=== PATIENT | male | born 1985 | race Caucasian/White ===

== ENCOUNTER 2022-06-06 08:48 | Emergency (ER) | payer OTHER, SELFPAY ==
[2022-06-06 09:38] VITALS: BP 134/86; PULSE 71; RESP 20; TEMP 36.4; O2SAT 100
--- NOTE | 2022-06-06 10:06 | ED.SOB ---
HPI - SOB/Dyspnea General Chief Complaint: Shortness of Breath/Dyspnea Stated Complaint: shortness of breath,chest hurts,headaches Time Seen by Provider: 06/06/22 10:07 Source: patient and RN notes reviewed Mode of arrival: ambulatory Limitations: no limitations History of Present Illness HPI Narrative: 37-year-old male presents with concern for 4 day history of cough, chest hurting with coughing, headaches, feeling of shortness of breath. He reports he has been taking several [id number] medications without relief. MD elicited complaint: cough Related Data Allergies Allergy/AdvReac Type Severity Reaction Status Date / Time No Known Allergies Allergy Unverified 06/06/22 09:50 Review of Systems Review of Systems: CONSTITUTIONAL: Reports malaise, chills. Denies sweats or fever. EYES: Denies visual changes, redness, or discharge. ENT: Reports rhinorrhea, congestion. Denies sinus pain, otalgia and sore throat. CARDIOVASCULAR: Denies chest pain, palpitations, or edema. RESPIRATORY: Reports cough, wheezing, occasional dyspnea. GASTROINTESTINAL: Denies abdominal pain, nausea, vomiting, diarrhea SKIN: Denies rash or itching. MUSCULOSKELETAL: Denies myalgia. NEUROLOGIC: Reports headache. All systems reviewed & are unremarkable except as noted in HPI and below PMFSH Comments At time of signature, agree with nursing past medical, surgical, social and family history. There is no relevant family history pertinent to the presenting complaint Exam Narrative: GENERAL: Well-appearing, well-nourished, and in no acute distress. HEAD: Normocephalic EYES: PERRLA, conjunctivae clear ENT: Nares clear, clear discharge. Mucous membranes moist. TM pearly gamble with dull light reflex bilaterally; no tragal tenderness. Oropharynx not erythematous without lesions. Tonsils not enlarged and without exudate, no drooling, no hoarseness, no trismus, uvula midline. NECK: Supple. No lymphadenopathy CHEST: Clear to auscultation, breath sounds equal. No wheezing, rhonchi, rales, or stridor. No respiratory distress, speaks in full sentences. Coughing HEART: Regular rate and rhythm. No murmur heard. SKIN: Warm, dry, no rash. NEURO: Alert and oriented x3. PSYCH: Normal mood and affect Course Course Emergency Course: Patient is aware of diagnosis, understands and agrees to treatment plan. Anticipatory guidance given. Patient agrees to follow-up as directed and is aware of reasons to seek care at the emergency department. Portions of this record may have been created with voice recognition software Level of Care: Express Care Visit Vital Signs Vital signs: Vital Signs Temperature 97.6 F 06/06/22 09:38 Pulse Rate 71 06/06/22 09:38 Respiratory Rate 20 06/06/22 09:38 Blood Pressure 134/86 06/06/22 09:38 Pulse Oximetry 100 06/06/22 09:38 Temperature 97.6 F 06/06/22 09:38 Pulse Rate 71 06/06/22 09:38 Respiratory Rate 20 06/06/22 09:38 Blood Pressure 134/86 06/06/22 09:38 Pulse Oximetry 100 06/06/22 09:38 Reviewed. MDM - SOB/Dyspnea MDM Narrative Medical decision making narrative: Differential diagnosis considered: Osorio virus, strep pharyngitis, allergic rhinitis, upper respiratory tract infection, sinusitis, rhinosinusitis, nasopharyngitis. viral pharyngitis, otitis media, otitis externa, pneumonia, bronchitis, viral cough syndrome, viral syndrome, and influenza. Exam findings show no acute concerns or changes; patient is non-toxic appearing and is in no distress. Patient is appropriate for outpatient treatment and follow-up. Lab Data Attestation: I reviewed the patient's lab results. Labs: Influenza A Screen Negative Reference Range: Negative Influenza B Screen Negative Reference Range: Negative Critical Care Time Critical Care Time Critical Care Time: No Discharge Plan
== END 2022-06-06 10:19 | disposition home or self-care (01) ==
PROVIDERS: Emergency Provider Nurse Practitioner; PCP Family Medicine
DX: J40 Bronchitis, not specified as acute or chronic (principal); I10 Essential (primary) hypertension
CPT/HCPCS: 87804; 99213; G0463

== ENCOUNTER 2022-09-04 08:22 | Emergency (ER) | payer OTHER, SELFPAY ==
--- NOTE | ~2022-09-04 | CT_ITS ---
EXAMINATION: CT lumbar spine wo con DATE: 09/04/2022 08:44 INDICATION: Status post fall. Low back pain. TECHNIQUE: Computed tomography (CT) of the lumbar spine was performed without intravenous contrast. T he dose-length product was 938.97 mGy-cm. Automated exposure control and iterative reconstruction rosa hnique were employed. COMPARISON: No prior studies for comparison. FINDINGS: There is degenerative disc disease and endplate sclerosis at T12-L1. No significant paraspi nal soft tissue abnormality. No acute fracture or traumatic malalignment. No evidence for spondylolis thesis. Vertebral body heights are maintained. Visualized aspects of the sacrum are unremarkable. IMPRESSION: 1. No acute abnormality of the lumbar spine. Reviewed, dictated and finalized at location L. IR TECHNICIAN
[2022-09-04 08:26] VITALS: BP 160/90; PULSE 82; RESP 16; TEMP 36.7; O2SAT 100
--- NOTE | 2022-09-04 08:33 | ED.BACK ---
HPI - Back Pain/Injury General Chief Complaint: Back Pain/Injury Stated Complaint: back pain Time Seen by Provider: 09/04/22 08:28 Source: patient Mode of arrival: ambulatory Limitations: no limitations History of Present Illness HPI Narrative: Patient is a 37-year-old male with a history of chronic lower back pain presenting to the emergency department for evaluation of exacerbation of pain. Patient states that he bent over to lift some heavy construction materials 2 days ago and felt a popping sensation in his lower back with immediate pain in the right lower back with radiation into the right buttocks. Patient reports this morning, he felt the same sensation in the shower, but this caused him to fall and land onto his buttocks. Patient reports severe, spasm-like pain in the lower back with radiation into the right buttock. He denies current focal weakness or numbness. He has been ambulatory although reports increased and aggravated pain with ambulation. He denies saddle anesthesia. He denies bowel or bladder incontinence. He denies fever or chills. Patient reports history of this in the past several years ago for which she received spinal injections which did resolve the symptoms. Patient denies any infectious type symptoms. No history of back surgery. Patient was seen by physician 2 days ago and placed him on Kenalog as well as Toradol with some improvement in his symptoms until the fall this morning. Related Data Allergies Allergy/AdvReac Type Severity Reaction Status Date / Time No Known Allergies Allergy Verified 09/04/22 08:31 Review of Systems Review of Systems: CONSTITUTIONAL: Denies fever CARDIOVASCULAR: Denies chest pain RESPIRATORY: Denies cough or dyspnea. GASTROINTESTINAL: Denies abdominal pain : Denies saddle anesthesia SKIN: Denies rash MUSCULOSKELETAL: Reports right lower back pain NEUROLOGIC: Denies headache, denies focal weakness or numbness [facility] Family History Family History Father Hypertension Heart disease Mother Hypertension Social History Social History Smoking packs per day: 2 Smoking cigarettes per day: 40.0 Smoking status: Current every day smoker Tobacco type: cigarettes Alcohol intake: current Substance use: current Substance use type: marijuana Living arrangements: with family Occupation/Education: occupation Gender identity (if verbalized by the patient): Male Sexual Orientation (if Verbalized by the Patient): Straight or Heterosexual Spiritual care concerns: No Exam Narrative: GENERAL: Awake, alert, conversant HEAD: Normocephalic, atraumatic. EYES: PERRLA and EOMI. ENT: Nares clear, no rhinorrhea or epistaxis. Mucous membranes moist. NECK: Supple. CHEST: No respiratory distress, breathing even and non labored HEART: Regular rate, sinus rhythm ABDOMEN:Non distended, non tender EXTREMITIES: Normal range of motion. No edema. Musculoskeletal: No midline cervical, thoracic or lumbar pain. Positive lumbar paraspinal tenderness on the right which reproduces pain. Pain overlying the right SI joint. SKIN: Warm, dry, no rash. NEURO:No focal deficits. Alert and oriented x3. Strength 5/5 bilateral upper extremities. Strength 5/5 bilateral lower extremities. Reflexes 2+ patellar. Heel to [place] intact bilaterally. Ambulatory with a narrow base, steady gait, no ataxia. Intact EHL/FHL bilaterally. Course Vital Signs Vital signs: Vital Signs Temperature 36.7 C 09/04/22 08:26 Pulse Rate 82 09/04/22 08:26 Respiratory Rate 16 09/04/22 08:26 Blood Pressure 160/90 H 09/04/22 08:26 Pulse Oximetry 100 09/04/22 08:26 Oxygen Delivery Room Air 09/04/22 08:26 Temperature 36.7 C 09/04/22 08:26 Pulse Rate 82 09/04/22 08:26 Respiratory Rate 16 09/04/22 08:26 Blood Pressure 160/90 H 09/04/22 08:26 Pulse Oximetry 100 09/04/22
--- NOTE | 2022-09-04 08:39 | PC.NURSE ---
Pt to CT scan via w/c at this time.
[2022-09-04] MEDS: ACETAMINOPHEN 500 MG TABLET 1000 MG PO (08:48)
[2022-09-04] MEDS: diazePAM (*CRX) 5 MG TABLET PO (08:48)
[2022-09-04] MEDS: KETOROLAC (*BKC) 60 MG/2 ML VIAL 30 MG IM (08:49)
== END 2022-09-04 09:11 | disposition home or self-care (01) ==
PROVIDERS: Emergency Provider Emergency Medicine; PCP Family Medicine
DX: M54.16 Radiculopathy, lumbar region (principal); M54.41 Lumbago with sciatica, right side; F17.210 Nicotine dependence, cigarettes, uncomplicated
CPT/HCPCS: 72131; 96372; 99284; A9270; J1100; J1885